=== PATIENT | male | born 1990 | race American Indian/Alaskan Native ===

== ENCOUNTER 2021-04-15 20:45 | Emergency (ER) | payer OTHER ==
[~2021-04-15] VITALS: Ht 185.4 cm; Wt 74.8 kg
[~2021-04-15 20:45] MED LIST: CEPH500 PO; ERYT.5TO LEFTEYE; Norco 5-325 Ta1 EACH PO
== END 2021-04-15 21:25 | disposition left against medical advice (07) ==
LOC: ER 20:45
DX: R10.9 Unspecified abdominal pain (principal); R11.0 Nausea
CPT/HCPCS: 99283